=== PATIENT | male | born 1985 | race Caucasian/White ===

== ENCOUNTER 2020-07-29 14:57 | Inpatient (IN) | payer MEDICAID, SELFPAY ==
[~2020-07-29] VITALS: Ht 177.8 cm; Wt 50.7 kg
[2020-07-29 16:13] LABS: BASOPHILS % (AUTO) 1 % (0-1); EOSINOPHILS % (AUTO) 2 % (1-7); LYMPHOCYTES % (AUTO) 16 % (22-44); MEAN CORPUSCULAR HEMOGLOBIN 21.2 pg (27.5-34.5); MEAN CORPUSCULAR HGB CONC 30.9 g/dL (33.2-36.2); MEAN PLATELET VOLUME 7.7 fL (7.4-10.4); MONOCYTES % (AUTO) 10 % (2-9); NEUTROPHILS % (AUTO) 72 % (42-75); PLATELET COUNT 384 x10^3/uL (130-400); RED BLOOD COUNT 4.96 x10^6/uL (4.38-5.82); RED CELL DISTRIBUTION WIDTH 18.4 % (9.4-14.8)
[2020-07-29 16:21] LABS: ALANINE AMINOTRANSFERASE 16 U/L (12-78); ALBUMIN 4.1 g/dL (3.4-5.0); ANION GAP 5 mmol/L (5-15); CALCIUM 9.4 mg/dL (8.5-10.1); CHLORIDE 109 mmol/L (98-107); CREATININE 0.71 mg/dL (0.7-1.3)
[2020-07-29 16:24] LABS: ALKALINE PHOSPHATASE 69 U/L (45-117); BILIRUBIN,TOTAL 0.2 mg/dL (0.2-1.0); TOTAL PROTEIN 7.8 g/dL (6.4-8.2)
[2020-07-29 16:35] LABS: MD MORPH REVIEW ONLY
[2020-07-29 16:37] LABS: <PLATELET ESTIMATE> ADEQUATE; <PLT MORPHOLOGY> NORMAL PLT MORPH
[2020-07-29 16:38] LABS: <WBC MORPHOLOGY> NORMAL; ANISOCYTOSIS 2+; MICROCYTOSIS 2+
[2020-07-29 16:39] LABS: OVALOCYTES 1+
[2020-07-29 16:40] LABS: HYPOCHROMIA 3+; SCHISTOCYTES 1+; TEAR DROPS 1+
--- NOTE | 2020-07-29 18:00 | NUR ---
ASSUMED CARE OF PT FROM LOBBY AT THIS TIME.
[2020-07-29 18:54] LABS: INTERNATIONAL NORMALIZED RATIO 1.08 (0.93-1.1); PROTHROMBIN TIME 11.4 Seconds (9.6-11.5)
[2020-07-29] MEDS ORDERED: SODIUM CHLORIDE FLUSH 10ML SYR IVF ONE (19:00)
[2020-07-29] MEDS ORDERED: ONDANSETRON 2MG/ML, 2ML IVPush ONE (19:00)
[2020-07-29] MEDS ORDERED: SODIUM CHLORIDE 0.9% 1,000ML IVBOLUS ONE (19:00)
[2020-07-29] MEDS ORDERED: PANTOPRAZOLE 80 MG in SODIUM CHLORIDE 0.9% 50 ML IVPB ONE (19:00)
[2020-07-29] MEDS: HYDROmorphone 2 MG/ML, 1ML IVPush PRN ×3 (19:23→20:03)
--- NOTE | 2020-07-29 19:48 | NUR ---
PT MEDICATED FOR PAIN PER MD. PT IS A HOLD IN THE ED AT THIS TIME. PT DENIES ANY CURRENT NEEDS.
[2020-07-29] MEDS ORDERED: HYDROmorphone 1 MG/ML, 1ML INJ ONE (19:56)
--- NOTE | 2020-07-29 20:05 | NUR ---
DR. SWANSON AT BEDSIDE FOR ADMIT. PT REMEDICATED FOR PAIN.
[2020-07-29] MEDS: PANTOPRAZOLE 80 MG in SODIUM CHLORIDE 0.9% 100 ML IV SCH ×3 (20:30→21:07)
--- NOTE | 2020-07-29 21:08 | NUR ---
PT MOVED TO HOSPITAL BED. WAITING FOR BED ASSIGNEMNT. PT DENIES ANY NEEDS AT THIS TIME.
--- NOTE | 2020-07-29 21:59 | NUR ---
REPORT TO YVON Sanchez RN.
--- NOTE | 2020-07-29 22:17 | NUR ---
ASSUMED CARE OF PATIENT. REPORT GIVEN FROM JEFF MILES. PT RESTING IN ROOM. NO ACUTE DISTRESS NOTED. CALL LIGHT IN PLACE. WILL CONTINUE TO MONITOR.
[2020-07-29] MEDS ORDERED: LACTATED RINGERS 1,000 ML IV SCH (23:00)
--- NOTE | 2020-07-29 23:30 | NUR ---
PT RESTING IN ROOM. NO ACUTE DISTRESS NOTED. CALL LIGHT IN PLACE. WILL CONTINUE TO MONITOR.
[2020-07-30] MEDS ORDERED: MORPHINE SULFATE 4 MG/ML, 1ML ONE ×3 (00:16→07:55)
[2020-07-30] MEDS: morphine SULFATE 10 MG/ML, 1ML IV PRN ×3 (00:20→07:57)
--- NOTE | 2020-07-30 01:05 | NUR ---
Pt report from Amaris rueda. This rn to assume care of pt.
--- NOTE | 2020-07-30 01:09 | NUR ---
REPORT GIVEN TO JEFF CAMACHO
--- NOTE | 2020-07-30 01:32 | NUR ---
Lactated Ringer requested from Rx. Not in [facility] at this time.
--- NOTE | 2020-07-30 01:44 | NUR ---
Rx states to get LR from central supply, they do not stock those. Contacted central supply.
--- NOTE | 2020-07-30 01:44 | NUR ---
Pt sleeping comfortably on gurney. Vitals equipment remains intact.
--- NOTE | 2020-07-30 02:05 | NUR ---
Left voice mail to hospitalist about H+H changes
--- NOTE | 2020-07-30 02:24 | NUR ---
Secondary IV initiated and pt states increased abd pain and wincing and guarding to palpation to RUQ and RLQ. Awaiting hospitalist call back.
--- NOTE | 2020-07-30 02:46 | NUR ---
Spoke to hospitalist and voiced concerns. No further orders at this time.
--- NOTE | 2020-07-30 03:47 | NUR ---
Pt sleeping comfortably. NADN. Rr even and unlabored.
--- NOTE | 2020-07-30 04:18 | NUR ---
Pt states increase in pain. Given pain med per dec.
--- NOTE | 2020-07-30 04:54 | NUR ---
Pt sleeping comfortably.
--- NOTE | 2020-07-30 05:22 | NUR ---
PT back from ct. New protonix ordered from Rx.
[2020-07-30] MEDS: PANTOPRAZOLE 80 MG in SODIUM CHLORIDE 0.9% 100 ML IV SCH ×2 (05:48→16:30)
[2020-07-30] MEDS ORDERED: OMNIPAQUE 350 MG/ML, 100ML BOTTLE ONE (06:29)
--- NOTE | 2020-07-30 06:48 | NUR ---
Pt bedside report to Fermin rueda.
--- NOTE | 2020-07-30 07:58 | NUR ---
REPORT RECIEVED FROM JANICE AGUILAR. ASSUMED CARE. PT CO OF PAIN. SEE MAR FOR INTERVENTIONS
[2020-07-30 09:13] LABS: % IRON SATURATION 5 % (20-55); IRON LEVEL 12 mcg/dL (65-175); TOTAL IRON BINDING CAPACITY 256 mcg/dL (250-450)
[2020-07-30 09:15] LABS: ABSOLUTE RETICS # 0.068 x10^6/uL (0.5-1.5); RED BLOOD COUNT 3.97 x10^6/uL (4.38-5.82); RETICULOCYTE COUNT % 1.7 % (0.5-1.5)
[2020-07-30] MEDS ORDERED: NICOTINE 21 MG/24 HR PATCH.TD24 ONE (09:51)
[2020-07-30] MEDS: NICOTINE 21 MG/24 HR PATCH.TD24 TD SCH (09:53)
[2020-07-30] MEDS ORDERED: ONDANSETRON 2MG/ML, 2ML ONE (10:07)
[2020-07-30] MEDS ORDERED: HYDROmorphone 1 MG/ML, 1ML INJ ONE (10:13)
[2020-07-30] MEDS: ONDANSETRON 2MG/ML, 2ML IVPush PRN ×3 (10:14→20:26)
[2020-07-30] MEDS: HYDROmorphone 2 MG/ML, 1ML IVPush PRN ×3 (10:15→20:27)
--- NOTE | 2020-07-30 10:19 | NUR ---
pt requested nicotine patch. pt co of pain and nausea. see mar for interventions
[2020-07-30 10:20] LABS: TROPONIN I < 0.015 ng/mL (0.000-0.045)
[2020-07-30] MEDS: LACTATED RINGERS 1,000 ML IV SCH ×3 (10:23→20:28)
[2020-07-30] MEDS ORDERED: FENTANYL PF 100 MCG/2ML ONE (11:55)
[2020-07-30] MEDS ORDERED: MIDAZOLAM 1 MG/ML, 5ML ONE (11:56)
--- NOTE | 2020-07-30 12:27 | NUR ---
PT MOVED TO T2 FOR EGD.
--- NOTE | 2020-07-30 13:04 | NUR ---
PROCEDURE COMPLETED. PT LAYING ON SIDE IN BED, RESTING WITH EYES CLOSED. PT AWAKENS EASILY TO NAME. NAD NOTED AT THIS TIME. PT REPORTS PERSISTENT ABDOMINAL PAIN, UNCHANGING FROM BEFORE PT WAS SCOPED. IVF INFUSING WITH PROTONIX. NC PLACED SUPPORTIVELY, PT SATURATING WELL REFLECTED IN VS. PER RN "WE DIDN'T SEE ANYTHING" ASIDE FROM HIATAL HERNIA. NO SOURCE OF BLOOD LOSS NOTED. CALL LIGHT IN REACH. AWAITING RECHECK.
--- NOTE | 2020-07-30 13:23 | NUR ---
RECEIVED REPORT FROM TERESE AGUILAR, PLAN OF CARE DISCUSSED. PT RESTING, VERBALZIED NO NEEDS AT THIS TIME
--- NOTE | 2020-07-30 14:08 | NUR ---
PT RESTING, VERBALIZED NO NEEDS AT THIS TIME. SPOKE WITH DR. ROMO PT TO REMAIN NPO, PT VERBALIZED UNDERSTANDING
--- NOTE | 2020-07-30 14:33 | NUR ---
REPORT TO HANH AGUILAR, PLAN OF CARE DISCUSSED
[2020-07-30] MEDS ORDERED: OXYC-302 PO (16:34)
[2020-07-30 18:19] LABS: TROPONIN I < 0.015 ng/mL (0.000-0.045)
[2020-07-30 18:40] VITALS: BP 120/81
[2020-07-30] MEDS: ACETAMINOPHEN 325 MG TABLET PO PRN (19:18)
[2020-07-30 23:34] LABS: TROPONIN I < 0.015 ng/mL (0.000-0.045)
[2020-07-31 00:16] VITALS: BP 118/67
[2020-07-31] MEDS: HYDROmorphone 2 MG/ML, 1ML IVPush PRN ×5 (00:29→21:48)
[2020-07-31] MEDS: PANTOPRAZOLE 80 MG in SODIUM CHLORIDE 0.9% 100 ML IV SCH ×2 (00:47→10:46)
[2020-07-31] MEDS: ONDANSETRON 2MG/ML, 2ML IVPush PRN ×3 (04:19→20:30)
[2020-07-31 05:48] LABS: BASOPHILS % (AUTO) 1 % (0-1); EOSINOPHILS % (AUTO) 5 % (1-7); LYMPHOCYTES % (AUTO) 25 % (22-44); MEAN CORPUSCULAR HEMOGLOBIN 21.7 pg (27.5-34.5); MEAN CORPUSCULAR HGB CONC 31.5 g/dL (33.2-36.2); MEAN PLATELET VOLUME 7.6 fL (7.4-10.4); MONOCYTES % (AUTO) 10 % (2-9); NEUTROPHILS % (AUTO) 59 % (42-75); PLATELET COUNT 277 x10^3/uL (130-400); RED BLOOD COUNT 3.86 x10^6/uL (4.38-5.82); RED CELL DISTRIBUTION WIDTH 18.3 % (9.4-14.8)
[2020-07-31 05:57] LABS: CHLORIDE 109 mmol/L (98-107)
[2020-07-31 06:03] LABS: MD NO
[2020-07-31 06:11] LABS: ALANINE AMINOTRANSFERASE 11 U/L (12-78); ALKALINE PHOSPHATASE 53 U/L (45-117); ANION GAP 5 mmol/L (5-15); BILIRUBIN,TOTAL 0.2 mg/dL (0.2-1.0); CALCIUM 8.5 mg/dL (8.5-10.1); CREATININE 0.72 mg/dL (0.7-1.3); TOTAL PROTEIN 5.8 g/dL (6.4-8.2); TRIGLYCERIDES 70 mg/dL (50-200)
[2020-07-31 07:41] VITALS: BP 120/78
[2020-07-31] MEDS: NICOTINE 21 MG/24 HR PATCH.TD24 TD SCH (07:53)
[2020-07-31] MEDS: HYDROcodone/APAP 5/325 TABLET PO PRN ×4 (09:56→22:55)
[2020-07-31 12:41] VITALS: BP 125/77
[2020-07-31 19:55] VITALS: BP 131/76
[2020-08-01] MEDS: ACETAMINOPHEN 325 MG TABLET PO PRN (00:42)
[2020-08-01] MEDS: HYDROmorphone 2 MG/ML, 1ML IVPush PRN ×2 (00:42→05:24)
[2020-08-01 02:24] VITALS: BP 112/74
[2020-08-01] MEDS: HYDROcodone/APAP 5/325 TABLET PO PRN ×3 (03:20→20:24)
[2020-08-01] MEDS ORDERED: OMEP40CA42 PO (04:15)
[2020-08-01] MEDS: ONDANSETRON 2MG/ML, 2ML IVPush PRN (05:24)
[2020-08-01] MEDS: OMEPRAZOLE 20 MG CAPSULE.DR PO SCH (05:24)
[2020-08-01 05:37] LABS: BASOPHILS % (AUTO) 2 % (0-1); EOSINOPHILS % (AUTO) 6 % (1-7); LYMPHOCYTES % (AUTO) 36 % (22-44); MEAN CORPUSCULAR HEMOGLOBIN 21.4 pg (27.5-34.5); MEAN CORPUSCULAR HGB CONC 31.6 g/dL (33.2-36.2); MEAN PLATELET VOLUME 7.5 fL (7.4-10.4); MONOCYTES % (AUTO) 14 % (2-9); NEUTROPHILS % (AUTO) 43 % (42-75); PLATELET COUNT 251 x10^3/uL (130-400); RED BLOOD COUNT 3.84 x10^6/uL (4.38-5.82); RED CELL DISTRIBUTION WIDTH 17.9 % (9.4-14.8)
[2020-08-01 05:41] LABS: ANION GAP 5 mmol/L (5-15); CALCIUM 8.5 mg/dL (8.5-10.1); CHLORIDE 106 mmol/L (98-107)
[2020-08-01 05:44] LABS: CREATININE 0.67 mg/dL (0.7-1.3)
[2020-08-01 06:27] LABS: MD SCAN
[2020-08-01 06:45] VITALS: BP 105/67
[2020-08-01] MEDS ORDERED: OXYcodone/APAP 5/325MG TABLET PO PRN (09:00)
[2020-08-01] MEDS ORDERED: MAGNESIUM CITRATE 300ML ORAL SOL PO ONE (09:00)
[2020-08-01] MEDS: NICOTINE 21 MG/24 HR PATCH.TD24 TD SCH (09:16)
[2020-08-01] MEDS: FERROUS SULFATE 325 MG TABLET PO SCH ×2 (09:17→18:30)
[2020-08-01 13:00] VITALS: BP 114/65
[2020-08-01 20:19] VITALS: BP 113/73
[2020-08-02 02:31] VITALS: BP 107/71
[2020-08-02 05:48] LABS: BASOPHILS % (AUTO) 1 % (0-1); EOSINOPHILS % (AUTO) 6 % (1-7); LYMPHOCYTES % (AUTO) 30 % (22-44); MEAN CORPUSCULAR HEMOGLOBIN 21.6 pg (27.5-34.5); MEAN CORPUSCULAR HGB CONC 31.5 g/dL (33.2-36.2); MEAN PLATELET VOLUME 7.5 fL (7.4-10.4); MONOCYTES % (AUTO) 13 % (2-9); NEUTROPHILS % (AUTO) 50 % (42-75); PLATELET COUNT 308 x10^3/uL (130-400); RED BLOOD COUNT 4.34 x10^6/uL (4.38-5.82)
[2020-08-02 05:52] LABS: MD NO
[2020-08-02 06:02] LABS: ALBUMIN 3.3 g/dL (3.4-5.0); ANION GAP 4 mmol/L (5-15); CALCIUM 8.7 mg/dL (8.5-10.1); CHLORIDE 108 mmol/L (98-107)
[2020-08-02] MEDS: OMEPRAZOLE 20 MG CAPSULE.DR PO SCH (06:05)
[2020-08-02] MEDS: HYDROcodone/APAP 5/325 TABLET PO PRN ×3 (06:05→17:09)
[2020-08-02 06:07] LABS: ALANINE AMINOTRANSFERASE 11 U/L (12-78); ALKALINE PHOSPHATASE 61 U/L (45-117); BILIRUBIN,TOTAL 0.2 mg/dL (0.2-1.0); CREATININE 0.68 mg/dL (0.7-1.3); TOTAL PROTEIN 6.5 g/dL (6.4-8.2)
[2020-08-02 08:00] VITALS: BP 119/81
[2020-08-02] MEDS: FERROUS SULFATE 325 MG TABLET PO SCH (11:31)
[2020-08-02] MEDS: NICOTINE 21 MG/24 HR PATCH.TD24 TD SCH (11:32)
[2020-08-02] MEDS ORDERED: OMEP-110 PO (13:33)
[2020-08-02] MEDS ORDERED: NICO-487 TD (13:33)
[2020-08-02] MEDS ORDERED: FERR-51 PO (13:33)
[2020-08-02] MEDS ORDERED: HYDR-3237 PO (13:33)
[2020-08-02] MEDS ORDERED: HYDROcodone/APAP 5/325 TABLET PO ONE (14:00)
[2020-08-02 14:14] VITALS: BP 113/77
[2020-08-02] MEDS ORDERED: OMNIPAQUE 350 MG/ML, 75ML BOTTLE ONE (18:08)
[2020-08-02 18:39] VITALS: BP 116/82
== END 2020-08-02 20:15 | disposition home or self-care (01) | DRG 377 ==
LOC: ED 18:42 → EDIP 19:40 → 4NE 07-30 14:53
PROVIDERS: ADMIT Family Medicine; ATTEND Internal Medicine
PROC: 0DJ08ZZ Inspection of Upper Intestinal Tract, Via Natural or Artificial Opening Endoscopic (ICD-10-PCS; principal; 2020-07-30 11:30)
DX: K92.2 Gastrointestinal hemorrhage, unspecified (principal); K22.3 Perforation of esophagus; K85.00 Idiopathic acute pancreatitis without necrosis or infection; J90 Pleural effusion, not elsewhere classified; K86.1 Other chronic pancreatitis; Z20.828 Contact with and (suspected) exposure to other viral communicable diseases; D50.0 Iron deficiency anemia secondary to blood loss (chronic); D70.9 Neutropenia, unspecified; F17.210 Nicotine dependence, cigarettes, uncomplicated; J45.20 Mild intermittent asthma, uncomplicated; K21.9 Gastro-esophageal reflux disease without esophagitis; K22.70 Barrett's esophagus without dysplasia; K44.9 Diaphragmatic hernia without obstruction or gangrene; K76.0 Fatty (change of) liver, not elsewhere classified; Z87.11 Personal history of peptic ulcer disease; Z87.19 Personal history of other diseases of the digestive system
CPT/HCPCS: 36415; 71260; 72050; 74021; 74177; 76700; 80048; 80053; 82150; 82607; 83540; 83550; 83690; 84443; 84478; 84484; 85014; 85018; 85025; 85045; 85610; 86850; 86900; 87635; 93005; 99152; 99153; G0378; J1170; J2250; J2405; J3010; Q9967; C9113; J2270; J7030; J7120

== ENCOUNTER 2020-08-27 07:31 | Inpatient (IN) | payer MEDICAID ==
[~2020-08-27] VITALS: Ht 177.8 cm; Wt 57.2 kg
[~2020-08-27 07:31] MED LIST: FERR-51 PO; HYDR-3237 PO; NICO-487 TD; OMEP-110 PO; OMEP40CA42 PO; OXYC-302 PO
[2020-08-27] MEDS ORDERED: MORPHINE SULFATE 4 MG/ML, 1ML IVPush ONE ×2 (08:00→11:00)
[2020-08-27] MEDS ORDERED: SODIUM CHLORIDE FLUSH 10ML SYR IVF ONE (08:00)
[2020-08-27] MEDS ORDERED: ONDANSETRON 2MG/ML, 2ML IVPush ONE (08:00)
[2020-08-27] MEDS ORDERED: SODIUM CHLORIDE 0.9% 1,000ML IVBOLUS ONE (08:30)
--- NOTE | 2020-08-27 08:45 | NUR ---
PT C/O DIFFICULTY AND PAIN WHEN SWALLOWING. PT RATES PAIN 7/10. PT SAYS IT STARTED ABOUT 1-2 WEEKS AGO BUT HAS WORSENED. PT HAS HX OF PANCREATITIS. PT HAS ABD PAIN ALSO.
[2020-08-27] MEDS ORDERED: MORPHINE SULFATE 4 MG/ML, 1ML ONE ×2 (08:49→10:40)
[2020-08-27] MEDS ORDERED: ONDANSETRON 2MG/ML, 2ML ONE (08:49)
[2020-08-27 09:05] LABS: ALANINE AMINOTRANSFERASE 13 U/L (12-78); ALBUMIN 4.1 g/dL (3.4-5.0); ANION GAP 7 mmol/L (5-15); CALCIUM 9.7 mg/dL (8.5-10.1); CHLORIDE 112 mmol/L (98-107); CREATININE 0.78 mg/dL (0.7-1.3)
[2020-08-27 09:06] LABS: ALKALINE PHOSPHATASE 89 U/L (45-117); BILIRUBIN,TOTAL 0.4 mg/dL (0.2-1.0); TOTAL PROTEIN 8.1 g/dL (6.4-8.2)
--- NOTE | 2020-08-27 09:17 | NUR ---
OFF THE FLOOR TO CT
[2020-08-27 09:18] LABS: BASOPHILS % (AUTO) 1 % (0-1); EOSINOPHILS % (AUTO) 2 % (1-7); LYMPHOCYTES % (AUTO) 19 % (22-44); MEAN CORPUSCULAR HEMOGLOBIN 21.2 pg (27.5-34.5); MEAN CORPUSCULAR HGB CONC 31.3 g/dL (33.2-36.2); MEAN PLATELET VOLUME 7.8 fL (7.4-10.4); MONOCYTES % (AUTO) 10 % (2-9); NEUTROPHILS % (AUTO) 68 % (42-75); PLATELET COUNT 316 x10^3/uL (130-400); RED BLOOD COUNT 5.12 x10^6/uL (4.38-5.82); RED CELL DISTRIBUTION WIDTH 18.2 % (9.4-14.8)
[2020-08-27 09:42] LABS: MD MORPH REVIEW ONLY
[2020-08-27 09:43] LABS: <PLATELET ESTIMATE> ADEQUATE; <PLT MORPHOLOGY> NORMAL PLT MORPH; ANISOCYTOSIS 1+; HYPOCHROMIA 1+; MICROCYTOSIS 2+; OVALOCYTES 1+
--- NOTE | 2020-08-27 09:44 | NUR ---
BACK FROM CT
[2020-08-27] MEDS ORDERED: OMNIPAQUE 350 MG/ML, 100ML BOTTLE ONE (09:45)
--- NOTE | 2020-08-27 09:53 | NUR ---
PT STATES NO PAIN RELIEF FROM MEDICATION
--- NOTE | 2020-08-27 10:24 | NUR ---
UOB TO BATHROOM, AMBULATING WITHOUT ASSISTANCE
[2020-08-27 10:25] LABS: MICROSCOPIC NOT IND
--- NOTE | 2020-08-27 10:45 | NUR ---
REMEDICATED FOR 04/15 PAIN
--- NOTE | 2020-08-27 11:42 | NUR ---
DR SPRAGUE BEDSIDE
[2020-08-27] MEDS ORDERED: ALBUTEROL (12:21)
[2020-08-27] MEDS ORDERED: METH750T2 PO (12:21)
--- NOTE | 2020-08-27 13:08 | NUR ---
PT REPORT GIVEN TO JEFF NUNO
[2020-08-27 13:24] VITALS: BP 110/71
[2020-08-27] MEDS ORDERED: MELATONIN 5 MG TABLET PO PRN (14:00)
[2020-08-27] MEDS ORDERED: SODIUM CHLORIDE 0.9% 1,000 ML IV SCH (14:00)
[2020-08-27] MEDS ORDERED: POLYETHYLENE GLYCOL 17 GM PACKET PO PRN (14:00)
[2020-08-27] MEDS ORDERED: ACETAMINOPHEN 325 MG TABLET PO PRN (14:00)
[2020-08-27] MEDS ORDERED: LABETALOL 5MG/ML, 20ML IVPush PRN ×2 (14:00→16:00)
[2020-08-27] MEDS: morphine SULFATE 10 MG/ML, 1ML IVPush PRN ×2 (14:58→18:48)
[2020-08-27] MEDS: HEPARIN 5,000 UNITS/ML, 1ML SQ SCH (16:00)
[2020-08-27] MEDS: METHOCARBAMOL 750 MG TABLET PO SCH ×2 (16:00→21:04)
[2020-08-27] MEDS: ONDANSETRON ODT 4 MG PO PRN (18:46)
[2020-08-27 19:56] VITALS: BP 140/72
[2020-08-27] MEDS: OMEPRAZOLE 20 MG CAPSULE.DR PO SCH (21:03)
[2020-08-27] MEDS: OXYcodone/APAP 5/325MG TABLET PO PRN (21:33)
[2020-08-28] MEDS: ONDANSETRON ODT 4 MG PO PRN (01:40)
[2020-08-28] MEDS: OXYcodone/APAP 5/325MG TABLET PO PRN ×5 (01:40→20:41)
[2020-08-28] MEDS: SODIUM CHLORIDE 0.9% 1,000 ML IV SCH ×4 (01:42→17:48)
[2020-08-28 03:44] VITALS: BP 109/74
[2020-08-28 05:32] LABS: BASOPHILS % (AUTO) 2 % (0-1); EOSINOPHILS % (AUTO) 6 % (1-7); LYMPHOCYTES % (AUTO) 34 % (22-44); MEAN CORPUSCULAR HEMOGLOBIN 21.4 pg (27.5-34.5); MEAN CORPUSCULAR HGB CONC 31.5 g/dL (33.2-36.2); MEAN PLATELET VOLUME 7.6 fL (7.4-10.4); MONOCYTES % (AUTO) 12 % (2-9); NEUTROPHILS % (AUTO) 47 % (42-75); PLATELET COUNT 230 x10^3/uL (130-400); RED BLOOD COUNT 3.91 x10^6/uL (4.38-5.82); RED CELL DISTRIBUTION WIDTH 17.9 % (9.4-14.8)
[2020-08-28 05:37] LABS: CREATININE 0.56 mg/dL (0.7-1.3)
[2020-08-28 06:06] LABS: ANION GAP 5 mmol/L (5-15); CHLORIDE 114 mmol/L (98-107)
[2020-08-28 06:34] LABS: MD NO
[2020-08-28 07:08] VITALS: BP 119/81
[2020-08-28] MEDS: METHOCARBAMOL 750 MG TABLET PO SCH ×3 (08:48→20:41)
[2020-08-28] MEDS: OMEPRAZOLE 20 MG CAPSULE.DR PO SCH ×2 (08:48→20:42)
[2020-08-28] MEDS: HEPARIN 5,000 UNITS/ML, 1ML SQ SCH ×4 (08:49→23:37)
[2020-08-28] MEDS ORDERED: ALBUTEROL HFA 90 MCG/SPRAY INH PRN (13:00)
[2020-08-28] MEDS: NICOTINE 14MG/24 HR PATCH.TD24 TD SCH (13:22)
[2020-08-28] MEDS ORDERED: LABETALOL 5MG/ML, 20ML IVPush PRN (13:30)
[2020-08-28 14:09] VITALS: BP 111/74
[2020-08-28 17:37] LABS: % IRON SATURATION 5 % (20-55); IRON LEVEL 13 mcg/dL (65-175); TOTAL IRON BINDING CAPACITY 283 mcg/dL (250-450)
[2020-08-28 20:00] VITALS: BP 111/74
[2020-08-28] MEDS: morphine SULFATE 10 MG/ML, 1ML IVPush PRN (23:12)
[2020-08-29 01:10] VITALS: BP 101/61
[2020-08-29] MEDS: OXYcodone/APAP 5/325MG TABLET PO PRN ×6 (01:18→22:12)
[2020-08-29] MEDS: SODIUM CHLORIDE 0.9% 1,000 ML IV SCH ×3 (01:20→22:09)
[2020-08-29 06:40] LABS: MEAN CORPUSCULAR HEMOGLOBIN 21.3 pg (27.5-34.5); MEAN CORPUSCULAR HGB CONC 31.1 g/dL (33.2-36.2); MEAN PLATELET VOLUME 7.9 fL (7.4-10.4); PLATELET COUNT 244 x10^3/uL (130-400); RED BLOOD COUNT 4.28 x10^6/uL (4.38-5.82)
[2020-08-29 07:42] VITALS: BP 121/78
[2020-08-29] MEDS: HEPARIN 5,000 UNITS/ML, 1ML SQ SCH ×2 (09:04→15:48)
[2020-08-29] MEDS: OMEPRAZOLE 20 MG CAPSULE.DR PO SCH ×2 (09:05→22:11)
[2020-08-29] MEDS: METHOCARBAMOL 750 MG TABLET PO SCH ×3 (09:05→22:10)
[2020-08-29 11:41] LABS: MD YES
[2020-08-29 11:42] LABS: EOS#(MANUAL) 0.15 x10^3/uL (0.0-0.4); EOS% (MANUAL) 6 % (1-7); LYMPH#(MANUAL) 0.85 x10^3/uL (1-3.4); LYMPHS% (MANUAL) 34 % (22-44); MONOS#(MANUAL) 0.28 x10^3/uL (0.3-2.7); MONOS% (MANUAL) 11 % (2-9); SEG#(MANUAL) 1.23 x10^3/uL (1.8-6.8); SEGS% (MANUAL) 49 % (42-75); SMUDGE CELLS 2+
[2020-08-29 11:43] LABS: <PLATELET ESTIMATE> ADEQUATE; <PLT MORPHOLOGY> NORMAL PLT MORPH; ANISOCYTOSIS 1+; HYPOCHROMIA 1+; MICROCYTOSIS 2+
[2020-08-29] MEDS: NICOTINE 14MG/24 HR PATCH.TD24 TD SCH (12:58)
[2020-08-29 14:22] VITALS: BP 129/84
[2020-08-29] MEDS: ONDANSETRON ODT 4 MG PO PRN (14:58)
[2020-08-29] MEDS: morphine SULFATE 10 MG/ML, 1ML IVPush PRN (15:12)
[2020-08-29 20:36] VITALS: BP 106/70
[2020-08-30] MEDS: HEPARIN 5,000 UNITS/ML, 1ML SQ SCH ×2 (00:14→09:01)
[2020-08-30 02:40] VITALS: BP 98/64
[2020-08-30 08:45] VITALS: BP 118/79
[2020-08-30] MEDS: METHOCARBAMOL 750 MG TABLET PO SCH (08:59)
[2020-08-30] MEDS: OMEPRAZOLE 20 MG CAPSULE.DR PO SCH (09:00)
[2020-08-30] MEDS: SODIUM CHLORIDE 0.9% 1,000 ML IV SCH (09:00)
[2020-08-30] MEDS: OXYcodone/APAP 5/325MG TABLET PO PRN (09:00)
[2020-08-30] MEDS ORDERED: FERR325T5 PO (12:20)
[2020-08-30] MEDS ORDERED: OXYC-302 PO (12:20)
[2020-08-30] MEDS: NICOTINE 14MG/24 HR PATCH.TD24 TD SCH (12:39)
[2020-08-30 13:20] VITALS: BP 131/75
== END 2020-08-30 14:22 | disposition home or self-care (01) | DRG 440 ==
LOC: ED 11:31 → EDIP 12:12 → 3N 12:30
PROVIDERS: ADMIT Family Medicine; ATTEND Family Medicine
DX: K85.90 Acute pancreatitis without necrosis or infection, unspecified (principal); D50.9 Iron deficiency anemia, unspecified; K86.1 Other chronic pancreatitis; D72.819 Decreased white blood cell count, unspecified; E86.0 Dehydration; F17.200 Nicotine dependence, unspecified, uncomplicated; G89.29 Other chronic pain; K21.9 Gastro-esophageal reflux disease without esophagitis; R13.10 Dysphagia, unspecified; Z82.49 Family history of ischemic heart disease and other diseases of the circulatory system
CPT/HCPCS: 36415; 71260; 74177; 80048; 80053; 81003; 83540; 83550; 83690; 85025; 96361; 96374; 99291; G0378; J1644; J2405; Q0162; Q9967; J2270; J7030

== ENCOUNTER 2020-09-10 13:53 | Inpatient (IN) | payer MEDICAID ==
[~2020-09-10] VITALS: Ht 177.8 cm; Wt 60.4 kg
[~2020-09-10 13:53] MED LIST changes: +ALBUTEROL; +FERR325T5 PO; +METH750T2 PO; -NICO-487 TD; +NICO-587 TD
[2020-09-10] MEDS ORDERED: HYDROmorphone 1 MG/ML, 1ML INJ ONE ×3 (14:23→19:21)
[2020-09-10] MEDS ORDERED: ONDANSETRON 2MG/ML, 2ML ONE (14:23)
[2020-09-10] MEDS ORDERED: ONDANSETRON 2MG/ML, 2ML IVPush ONE (14:30)
[2020-09-10] MEDS ORDERED: SODIUM CHLORIDE FLUSH 10ML SYR IVF ONE (14:30)
[2020-09-10] MEDS ORDERED: SODIUM CHLORIDE 0.9% 1,000ML IVBOLUS ONE (14:30)
[2020-09-10] MEDS: HYDROmorphone 1 MG/ML, 1ML INJ IVPush PRN ×2 (14:38→17:19)
[2020-09-10 14:47] LABS: BASOPHILS % (AUTO) 1 % (0-1); EOSINOPHILS % (AUTO) 0 % (1-7); LYMPHOCYTES % (AUTO) 17 % (22-44); MEAN CORPUSCULAR HEMOGLOBIN 20.6 pg (27.5-34.5); MEAN CORPUSCULAR HGB CONC 31.1 g/dL (33.2-36.2); MONOCYTES % (AUTO) 9 % (2-9); NEUTROPHILS % (AUTO) 73 % (42-75); PLATELET COUNT 284 x10^3/uL (130-400); RED BLOOD COUNT 4.43 x10^6/uL (4.38-5.82); RED CELL DISTRIBUTION WIDTH 18.3 % (9.4-14.8)
[2020-09-10 14:58] LABS: ALBUMIN 3.7 g/dL (3.4-5.0); ANION GAP 7 mmol/L (5-15); CALCIUM 8.8 mg/dL (8.5-10.1); CHLORIDE 107 mmol/L (98-107)
[2020-09-10 15:02] LABS: ALANINE AMINOTRANSFERASE 49 U/L (12-78); ALKALINE PHOSPHATASE 79 U/L (45-117); BILIRUBIN,TOTAL 0.4 mg/dL (0.2-1.0); TOTAL PROTEIN 7.3 g/dL (6.4-8.2)
[2020-09-10 15:36] LABS: MD MORPH REVIEW ONLY
[2020-09-10 15:37] LABS: ANISOCYTOSIS 1+; HYPOCHROMIA 1+; MICROCYTOSIS 1+; OVALOCYTES 1+; POLYCHROMASIA 1+
[2020-09-10 15:38] LABS: <PLATELET ESTIMATE> ADEQUATE; <PLT MORPHOLOGY> NORMAL PLT MORPH
[2020-09-10] MEDS ORDERED: OMNIPAQUE 350 MG/ML, 100ML BOTTLE ONE (16:00)
--- NOTE | 2020-09-10 16:23 | NUR ---
break rn- pt back from ct, resting in bed.
[2020-09-10] MEDS ORDERED: HYDROmorphone 2 MG/ML, 1ML IVPush PRN (17:00)
[2020-09-10] MEDS ORDERED: METRONIDAZOLE PMX 500MG/100ML 100 ML ONE (17:54)
[2020-09-10] MEDS ORDERED: CEFTRIAXONE PMX 1GM/50ML 50 ML ONE (17:54)
[2020-09-10] MEDS ORDERED: METRONIDAZOLE PMX 500MG/100ML 100 ML IV ONE (18:30)
[2020-09-10] MEDS ORDERED: ENOXAPARIN 40 MG/0.4 ML ONE (19:23)
[2020-09-10] MEDS: LACTATED RINGERS 1,000 ML IV SCH (19:25)
[2020-09-10] MEDS: ENOXAPARIN 40 MG/0.4 ML SQ SCH (19:25)
[2020-09-10] MEDS: METRONIDAZOLE PMX 500MG/100ML 100 ML IV SCH (19:26)
[2020-09-10] MEDS ORDERED: IBUPROFEN 600 MG TABLET PO PRN (19:30)
[2020-09-10] MEDS ORDERED: ONDANSETRON ODT 4 MG PO PRN (19:30)
[2020-09-10] MEDS ORDERED: ACETAMINOPHEN 325 MG TABLET PO PRN (19:30)
--- NOTE | 2020-09-10 19:35 | NUR ---
CHICKEN BROTH AND AMELIA OATES.
[2020-09-10 20:00] LABS: HCT (SEDRATE) 29.4 % (39.2-51.8)
[2020-09-10] MEDS ORDERED: CEFTRIAXONE PMX 1GM/50ML 50 ML IVPB ONE (20:00)
[2020-09-10 20:43] VITALS: BP 136/87
[2020-09-10] MEDS: HYDROcodone/APAP 5/325 TABLET PO PRN (20:55)
[2020-09-10] MEDS: METHOCARBAMOL 750 MG TABLET PO SCH (21:45)
[2020-09-10] MEDS: OMEPRAZOLE 20 MG CAPSULE.DR PO SCH (21:45)
[2020-09-10] MEDS: FERROUS SULFATE 325 MG TABLET PO SCH (21:45)
[2020-09-10] MEDS: morphine SULFATE 10 MG/ML, 1ML IVPush PRN (23:04)
[2020-09-10] MEDS: NICOTINE 7 MG/24 HR PATCH.TD24 TD SCH (23:53)
[2020-09-11 00:48] VITALS: BP 123/73
[2020-09-11] MEDS: HYDROcodone/APAP 5/325 TABLET PO PRN (01:13)
[2020-09-11] MEDS ORDERED: MAALOX/HYOSCYAMINE/LIDOCAINE 45 ML BTL PO ONE (02:00)
[2020-09-11] MEDS: LACTATED RINGERS 1,000 ML IV SCH ×3 (03:10→20:30)
[2020-09-11] MEDS: METRONIDAZOLE PMX 500MG/100ML 100 ML IV SCH ×3 (03:10→18:30)
[2020-09-11] MEDS: morphine SULFATE 10 MG/ML, 1ML IVPush PRN ×3 (03:18→14:43)
[2020-09-11 05:54] LABS: ALBUMIN 2.9 g/dL (3.4-5.0); ANION GAP 4 mmol/L (5-15); CALCIUM 7.6 mg/dL (8.5-10.1); CHLORIDE 109 mmol/L (98-107)
[2020-09-11 05:59] LABS: ALANINE AMINOTRANSFERASE 30 U/L (12-78); ALKALINE PHOSPHATASE 64 U/L (45-117); BILIRUBIN,TOTAL 0.4 mg/dL (0.2-1.0); CREATININE 0.62 mg/dL (0.7-1.3); TOTAL PROTEIN 5.6 g/dL (6.4-8.2)
[2020-09-11] MEDS: OXYcodone/APAP 5/325MG TABLET PO PRN ×3 (06:26→15:49)
[2020-09-11 08:00] VITALS: BP 103/60
[2020-09-11 08:28] LABS: BASOPHILS % (AUTO) 1 % (0-1); EOSINOPHILS % (AUTO) 2 % (1-7); LYMPHOCYTES % (AUTO) 29 % (22-44); MEAN CORPUSCULAR HEMOGLOBIN 21.1 pg (27.5-34.5); MEAN CORPUSCULAR HGB CONC 31.3 g/dL (33.2-36.2); MEAN PLATELET VOLUME 8.1 fL (7.4-10.4); MONOCYTES % (AUTO) 11 % (2-9); NEUTROPHILS % (AUTO) 57 % (42-75); PLATELET COUNT 240 x10^3/uL (130-400); RED BLOOD COUNT 3.57 x10^6/uL (4.38-5.82)
[2020-09-11] MEDS: FERROUS SULFATE 325 MG TABLET PO SCH ×2 (08:56→20:43)
[2020-09-11] MEDS: OMEPRAZOLE 20 MG CAPSULE.DR PO SCH ×2 (08:56→20:43)
[2020-09-11] MEDS: METHOCARBAMOL 750 MG TABLET PO SCH ×3 (08:57→20:43)
[2020-09-11 09:04] LABS: MD NO
[2020-09-11 12:42] VITALS: BP 111/69
[2020-09-11] MEDS: CEFTRIAXONE PMX 1GM/50ML 50 ML IV SCH (17:03)
[2020-09-11 18:43] VITALS: BP 110/68
[2020-09-11] MEDS: ENOXAPARIN 40 MG/0.4 ML SQ SCH (19:30)
[2020-09-11] MEDS: HYDROmorphone 1 MG/ML, 1ML INJ IV PRN ×2 (20:40→23:40)
[2020-09-11] MEDS: NICOTINE 7 MG/24 HR PATCH.TD24 TD SCH (23:18)
[2020-09-12] MEDS: HYDROmorphone 1 MG/ML, 1ML INJ IV PRN ×4 (00:50→18:20)
[2020-09-12 01:41] VITALS: BP 108/68
[2020-09-12] MEDS: METRONIDAZOLE PMX 500MG/100ML 100 ML IV SCH ×3 (03:57→18:16)
[2020-09-12] MEDS: LACTATED RINGERS 1,000 ML IV SCH ×2 (05:25→15:19)
[2020-09-12 06:22] LABS: CHLORIDE 112 mmol/L (98-107)
[2020-09-12 06:27] LABS: ALANINE AMINOTRANSFERASE 22 U/L (12-78); ALBUMIN 2.9 g/dL (3.4-5.0); ALKALINE PHOSPHATASE 59 U/L (45-117); ANION GAP 4 mmol/L (5-15); BILIRUBIN,TOTAL 0.2 mg/dL (0.2-1.0); CALCIUM 7.9 mg/dL (8.5-10.1); TOTAL PROTEIN 5.6 g/dL (6.4-8.2)
[2020-09-12 06:46] LABS: BASOPHILS % (AUTO) 1 % (0-1); EOSINOPHILS % (AUTO) 4 % (1-7); LYMPHOCYTES % (AUTO) 30 % (22-44); MEAN CORPUSCULAR HEMOGLOBIN 20.7 pg (27.5-34.5); MEAN CORPUSCULAR HGB CONC 30.9 g/dL (33.2-36.2); MEAN PLATELET VOLUME 8.3 fL (7.4-10.4); MONOCYTES % (AUTO) 11 % (2-9); NEUTROPHILS % (AUTO) 55 % (42-75); PLATELET COUNT 257 x10^3/uL (130-400); RED BLOOD COUNT 3.79 x10^6/uL (4.38-5.82); RED CELL DISTRIBUTION WIDTH 18.2 % (9.4-14.8)
[2020-09-12 06:48] LABS: MD NO
[2020-09-12 07:22] VITALS: BP 115/75
[2020-09-12] MEDS: OMEPRAZOLE 20 MG CAPSULE.DR PO SCH ×2 (08:55→20:53)
[2020-09-12] MEDS: METHOCARBAMOL 750 MG TABLET PO SCH ×3 (08:55→20:52)
[2020-09-12] MEDS: FERROUS SULFATE 325 MG TABLET PO SCH ×2 (08:56→20:53)
[2020-09-12] MEDS: OXYcodone/APAP 5/325MG TABLET PO PRN ×3 (08:56→20:54)
[2020-09-12] MEDS ORDERED: TPN PER PHARMACY MC PRN (14:00)
[2020-09-12 14:12] VITALS: BP 121/74
[2020-09-12] MEDS: hydrOXyzine 50MG TABLET PO PRN ×2 (14:32→19:24)
[2020-09-12] MEDS ORDERED: FILTER, DISP 1.2 MICRON FOR TPN/PVN IV PRN (16:00)
[2020-09-12] MEDS: LORazepam 2 MG/ML, 1ML IVPush PRN (16:30)
[2020-09-12] MEDS ORDERED: DEXTROSE 70% IV SCH (17:00)
[2020-09-12] MEDS ORDERED: AMINO ACID 10% IV SCH (17:00)
[2020-09-12] MEDS ORDERED: DEXTROSE 10% 500 ML IV PRN (17:00)
[2020-09-12] MEDS ORDERED: FAT EMUL IV SCH (17:00)
[2020-09-12] MEDS ORDERED: SMOF TPN IV SCH (17:00)
[2020-09-12] MEDS ORDERED: DEXTROSE 50%, 50ML SYRINGE IVPush PRN (17:00)
[2020-09-12] MEDS ORDERED: [UNRECOGNIZED DRUG - OTHER] IV SCH (17:00)
[2020-09-12] MEDS: CEFTRIAXONE PMX 1GM/50ML 50 ML IV SCH (17:53)
[2020-09-12 18:56] VITALS: BP 121/80
[2020-09-12] MEDS: ENOXAPARIN 40 MG/0.4 ML SQ SCH (19:30)
[2020-09-12] MEDS: INSULIN REGULAR LOW DOSE Q6H X 48HRS SQ-INSULIN SCH (20:58)
[2020-09-13] MEDS ORDERED: HYDROmorphone 2 MG/ML, 1ML ONE ×3 (00:16→11:53)
[2020-09-13] MEDS: NICOTINE 7 MG/24 HR PATCH.TD24 TD SCH (00:20)
[2020-09-13] MEDS: HYDROmorphone 1 MG/ML, 1ML INJ IV PRN ×6 (00:26→21:08)
[2020-09-13 00:46] VITALS: BP 118/75
[2020-09-13] MEDS: LACTATED RINGERS 1,000 ML IV SCH ×2 (01:30→14:57)
[2020-09-13] MEDS: METRONIDAZOLE PMX 500MG/100ML 100 ML IV SCH ×3 (02:57→19:27)
[2020-09-13] MEDS: INSULIN REGULAR LOW DOSE Q6H X 48HRS SQ-INSULIN SCH ×4 (03:00→21:00)
[2020-09-13] MEDS: OXYcodone/APAP 5/325MG TABLET PO PRN ×4 (03:08→19:37)
[2020-09-13 06:03] LABS: BASOPHILS % (AUTO) 1 % (0-1); EOSINOPHILS % (AUTO) 6 % (1-7); LYMPHOCYTES % (AUTO) 26 % (22-44); MEAN CORPUSCULAR HEMOGLOBIN 21.3 pg (27.5-34.5); MEAN CORPUSCULAR HGB CONC 31.7 g/dL (33.2-36.2); MONOCYTES % (AUTO) 10 % (2-9); NEUTROPHILS % (AUTO) 57 % (42-75); PLATELET COUNT 274 x10^3/uL (130-400); RED BLOOD COUNT 3.63 x10^6/uL (4.38-5.82); RED CELL DISTRIBUTION WIDTH 18.3 % (9.4-14.8)
[2020-09-13 06:09] LABS: MD NO
[2020-09-13 06:14] LABS: CHLORIDE 113 mmol/L (98-107)
[2020-09-13 06:26] LABS: ANION GAP 6 mmol/L (5-15); CALCIUM 8.3 mg/dL (8.5-10.1); CREATININE 0.55 mg/dL (0.7-1.3)
[2020-09-13 06:27] LABS: ALANINE AMINOTRANSFERASE 18 U/L (12-78); ALBUMIN 2.8 g/dL (3.4-5.0); ALKALINE PHOSPHATASE 58 U/L (45-117); BILIRUBIN,TOTAL 0.2 mg/dL (0.2-1.0); PREALBUMIN 18.2 mg/dL (20.0-40.0); TOTAL PROTEIN 5.5 g/dL (6.4-8.2); TRIGLYCERIDES 80 mg/dL (50-200)
[2020-09-13 07:18] VITALS: BP 129/79
[2020-09-13] MEDS: LORazepam 2 MG/ML, 1ML IVPush PRN ×3 (09:08→21:15)
[2020-09-13] MEDS: METHOCARBAMOL 750 MG TABLET PO SCH ×3 (11:47→21:07)
[2020-09-13] MEDS: FERROUS SULFATE 325 MG TABLET PO SCH ×2 (11:48→19:37)
[2020-09-13] MEDS: OMEPRAZOLE 20 MG CAPSULE.DR PO SCH ×2 (11:58→19:37)
[2020-09-13 12:26] VITALS: BP 140/82
[2020-09-13] MEDS ORDERED: DEXTROSE 70% IV SCH (17:00)
[2020-09-13] MEDS ORDERED: AMINO ACID 10% IV SCH (17:00)
[2020-09-13] MEDS ORDERED: SMOF TPN IV SCH (17:00)
[2020-09-13] MEDS ORDERED: [UNRECOGNIZED DRUG - OTHER] IV SCH (17:00)
[2020-09-13] MEDS ORDERED: FAT EMUL IV SCH (17:00)
[2020-09-13] MEDS: CEFTRIAXONE PMX 1GM/50ML 50 ML IV SCH (18:30)
[2020-09-13] MEDS: ENOXAPARIN 40 MG/0.4 ML SQ SCH (19:30)
[2020-09-13 19:48] VITALS: BP 115/74
[2020-09-14] MEDS: NICOTINE 7 MG/24 HR PATCH.TD24 TD SCH (00:22)
[2020-09-14] MEDS: LACTATED RINGERS 1,000 ML IV SCH ×2 (00:22→11:24)
[2020-09-14 01:40] VITALS: BP 108/71
[2020-09-14] MEDS: METRONIDAZOLE PMX 500MG/100ML 100 ML IV SCH ×2 (02:32→11:24)
[2020-09-14] MEDS: INSULIN REGULAR LOW DOSE Q6H X 48HRS SQ-INSULIN SCH ×2 (02:34→11:15)
[2020-09-14 05:24] LABS: ANION GAP 4 mmol/L (5-15); CALCIUM 8.3 mg/dL (8.5-10.1); CHLORIDE 111 mmol/L (98-107); CREATININE 0.61 mg/dL (0.7-1.3)
[2020-09-14] MEDS: HYDROmorphone 1 MG/ML, 1ML INJ IV PRN ×2 (05:29→11:10)
[2020-09-14] MEDS: LORazepam 2 MG/ML, 1ML IVPush PRN (06:02)
[2020-09-14 07:10] VITALS: BP 110/72
[2020-09-14] MEDS ORDERED: OXYcodone/APAP 5/325MG PO (09:03)
[2020-09-14] MEDS ORDERED: AMOX1TAB64 PO (09:03)
[2020-09-14] MEDS: FERROUS SULFATE 325 MG TABLET PO SCH (11:10)
[2020-09-14] MEDS: OMEPRAZOLE 20 MG CAPSULE.DR PO SCH (11:10)
[2020-09-14] MEDS: METHOCARBAMOL 750 MG TABLET PO SCH (11:10)
[2020-09-14] MEDS ORDERED: AMINO ACID 10% IV SCH (17:00)
[2020-09-14] MEDS ORDERED: SMOF TPN IV SCH (17:00)
[2020-09-14] MEDS ORDERED: [UNRECOGNIZED DRUG - OTHER] IV SCH (17:00)
[2020-09-14] MEDS ORDERED: FAT EMUL IV SCH (17:00)
[2020-09-14] MEDS ORDERED: DEXTROSE 70% IV SCH (17:00)
[2020-09-15] MEDS ORDERED: INSULIN REGULAR LOW DOSE QDAY SQ-INSULIN SCH (07:30)
== END 2020-09-14 11:56 | disposition left against medical advice (07) | DRG 438 ==
LOC: ED 15:34 → EDIP 19:16 → 5SO 20:32
PROVIDERS: ADMIT Family Medicine; ATTEND Family Medicine
PROC: 02HV33Z Insertion of Infusion Device into Superior Vena Cava, Percutaneous Approach (ICD-10-PCS; principal; 2020-09-13)
PROC: B5181ZA Fluoroscopy of Superior Vena Cava using Low Osmolar Contrast, Guidance (ICD-10-PCS; 2020-09-13)
PROC: B548ZZA Ultrasonography of Superior Vena Cava, Guidance (ICD-10-PCS; 2020-09-13)
DX: K86.3 Pseudocyst of pancreas (principal); J18.1 Lobar pneumonia, unspecified organism; K85.90 Acute pancreatitis without necrosis or infection, unspecified; K86.0 Alcohol-induced chronic pancreatitis; D64.9 Anemia, unspecified; Z53.29 Procedure and treatment not carried out because of patient's decision for other reasons; G89.29 Other chronic pain; I10 Essential (primary) hypertension; J45.909 Unspecified asthma, uncomplicated; K21.00 Gastro-esophageal reflux disease with esophagitis, without bleeding; K59.00 Constipation, unspecified; R13.10 Dysphagia, unspecified; Z82.49 Family history of ischemic heart disease and other diseases of the circulatory system; Z87.11 Personal history of peptic ulcer disease; Z72.0 Tobacco use
CPT/HCPCS: 36415; 99285; J3475; 36573; 74177; 74181; 80048; 80053; 82728; 82962; 83540; 83550; 83690; 83735; 84100; 84134; 84478; 85025; 85651; 87635; 93005; G0378; J0610; J0696; J1170; J1650; J1815; J2405; Q0162; Q9967; C1751; J2060; J2270; J3420; J7030; J7120

== ENCOUNTER 2020-09-15 10:50 | Emergency (ER) | payer MEDICAID ==
[~2020-09-15] VITALS: Ht 177.8 cm; Wt 65.9 kg
[~2020-09-15 10:50] MED LIST changes: +AMOX1TAB64 PO; +OXYcodone/APAP 5/325MG PO
[2020-09-15] MEDS ORDERED: SODIUM CHLORIDE 0.9% 1,000ML IVBOLUS ONE (12:00)
[2020-09-15] MEDS ORDERED: FAMOTIDINE 20 MG/2 ML IV ONE (12:00)
[2020-09-15] MEDS ORDERED: MAALOX/HYOSCYAMINE/LIDOCAINE 45 ML BTL PO ONE (12:00)
[2020-09-15] MEDS ORDERED: PLEASE ENTER HEIGHT AND WEIGHT MC SCH (12:00)
[2020-09-15] MEDS ORDERED: ONDANSETRON 2MG/ML, 2ML IVPush ONE (12:00)
[2020-09-15] MEDS ORDERED: MORPHINE SULFATE 4 MG/ML, 1ML ONE ×2 (12:03→14:34)
[2020-09-15] MEDS ORDERED: FAMOTIDINE 20 MG/2 ML ONE (12:03)
[2020-09-15] MEDS ORDERED: ONDANSETRON 2MG/ML, 2ML ONE (12:03)
[2020-09-15] MEDS ORDERED: MAALOX/HYOSCYAMINE/LIDOCAINE 45 ML BTL ONE (12:09)
[2020-09-15 12:19] LABS: BASOPHILS % (AUTO) 1 % (0-1); EOSINOPHILS % (AUTO) 1 % (1-7); LYMPHOCYTES % (AUTO) 14 % (22-44); MEAN CORPUSCULAR HEMOGLOBIN 21.1 pg (27.5-34.5); MEAN CORPUSCULAR HGB CONC 31.2 g/dL (33.2-36.2); MEAN PLATELET VOLUME 7.9 fL (7.4-10.4); MONOCYTES % (AUTO) 9 % (2-9); NEUTROPHILS % (AUTO) 76 % (42-75); PLATELET COUNT 423 x10^3/uL (130-400); RED BLOOD COUNT 5.43 x10^6/uL (4.38-5.82); RED CELL DISTRIBUTION WIDTH 19.2 % (9.4-14.8)
[2020-09-15] MEDS: MORPHINE SULFATE 4 MG/ML, 1ML IVPush PRN ×2 (12:28→14:37)
[2020-09-15 12:30] LABS: ALANINE AMINOTRANSFERASE 30 U/L (12-78); ALBUMIN 4.9 g/dL (3.4-5.0); ANION GAP 6 mmol/L (5-15); CALCIUM 10.1 mg/dL (8.5-10.1); CHLORIDE 107 mmol/L (98-107); CREATININE 0.95 mg/dL (0.7-1.3)
[2020-09-15 12:32] LABS: ALKALINE PHOSPHATASE 83 U/L (45-117); BILIRUBIN,TOTAL 0.4 mg/dL (0.2-1.0); TOTAL PROTEIN 9.2 g/dL (6.4-8.2)
[2020-09-15 12:36] LABS: ANISOCYTOSIS 2+; HYPOCHROMIA 1+; MD MORPH REVIEW ONLY; MICROCYTOSIS 2+; OVALOCYTES 1+; POLYCHROMASIA 1+
[2020-09-15 12:37] LABS: <PLATELET ESTIMATE> INCREASED; <PLT MORPHOLOGY> NORMAL PLT MORPH
--- NOTE | 2020-09-15 14:47 | NUR ---
REPORT FROM LIVIA AGUILAR ASSUMING CARE OF PT AT THIS TIME
--- NOTE | 2020-09-15 14:54 | NUR ---
PA AT BEDSIDE TO REASSESS PT AT THIS TIME AND DISCUSS POC
[2020-09-15 14:56] LABS: MICROSCOPIC AUTO
--- NOTE | 2020-09-15 15:26 | NUR ---
PT C/O PAIN WHEN IV FLUSHED, NEW PIV STARTED NO PAIN. L WRIST IV D/C AT THIS TIME TIP INTACT. MINOR EDEMA NOTED TO THE AREA PT REPORTS IMPROVED PAIN AFTER REMOVAL
--- NOTE | 2020-09-15 15:52 | NUR ---
PT TO CT AT THIS TIME
[2020-09-15] MEDS ORDERED: OMNIPAQUE 350 MG/ML, 100ML BOTTLE ONE (16:08)
--- NOTE | 2020-09-15 16:14 | NUR ---
PT REQ ADDITIONAL PAIN MEDS ERP TO BE UPDATED
[2020-09-15] MEDS ORDERED: CEFTRIAXONE PMX 1GM/50ML 50 ML ONE (16:17)
--- NOTE | 2020-09-15 16:22 | NUR ---
PER SHAKILA MACHADO, CULUTURES TO BE DRAWN PRIOR TO ABX ADMIN AWAITING LAB DRAW AT THIS TIME
[2020-09-15] MEDS ORDERED: AZITHROMYCIN 500 MG in SODIUM CHLORIDE 0.9% 250 ML IV ONE (16:30)
[2020-09-15] MEDS ORDERED: CEFTRIAXONE PMX 1GM/50ML 50 ML IV ONE (16:30)
--- NOTE | 2020-09-15 17:04 | NUR ---
ABX STARTED, CULTURES DRAWN PRIOR TO START
--- NOTE | 2020-09-15 18:00 | NUR ---
ZITHROMAX STARTED AT THIS TIME.
--- NOTE | 2020-09-15 18:15 | NUR ---
PT HAS REMOVED ALL MONITORING REQUESTING NO VITALS AT THIS TIME
[2020-09-15 19:57] VITALS: BP 123/86
[2020-09-28] MEDS ORDERED: METH750T87 PO (08:30)
[2020-09-28] MEDS ORDERED: ASPI-650 PO (10:18)
[2020-09-28] MEDS ORDERED: DIPH25TA65 PO (10:19)
== END 2020-09-15 20:01 | disposition home or self-care (01) ==
LOC: ED 12:11
DX: K21.9 Gastro-esophageal reflux disease without esophagitis (principal); J15.9 Unspecified bacterial pneumonia; J18.1 Lobar pneumonia, unspecified organism; R19.7 Diarrhea, unspecified; R42 Dizziness and giddiness; R06.02 Shortness of breath; K22.8 Other specified diseases of esophagus; R10.84 Generalized abdominal pain; F17.210 Nicotine dependence, cigarettes, uncomplicated
CPT/HCPCS: 36415; 71045; 71275; 80053; 81001; 83690; 85025; 85379; 87040; 96361; 96365; 96367; 96375; 96376; 99285; 99406; J0456; J0696; J2270; J2405; J7030; J7050; Q9967